=== PATIENT | female | born 1995 | race Caucasian/White ===

== ENCOUNTER 2019-07-11 12:46 | Emergency (ER) | payer OTHER ==
[~2019-07-11] VITALS: Ht 167.6 cm; Wt 85.6 kg
[2019-07-11] MEDS ORDERED: KETOROLAC 30 MG/ML VIAL (J1885) IV ONE (15:15)
--- NOTE | 2019-07-11 15:47 | REP ---
Chest x-ray: Two views. History: Chest pain . Comparison study: No comparison study. . Findings: The lungs are well inflated and free of infiltrate. The pleural angles are sharp. The heart size is normal. Pulmonary vasculature is not increased. No significant bony abnormality is seen. Impression: Negative chest x-ray. Electronically Signed by Juma Naylor MD 07/11/2019 03:38 P
[2019-07-11] MEDS ORDERED: ISOVUE-370 76% 100ML VIAL (Q9967) As Ordered ONE (15:50)
--- NOTE | 2019-07-11 16:16 | REP ---
CT pulmonary angiogram: With IV contrast. History: Chest pain. Comparison studies: Today's chest x-ray. Contrast dose: 75 ML of Isovue [address] technique: Helical scanning is acquired and overlapping 1.5 mm and contiguous 3 mm axial images are reformatted. In addition, maximum intensity projection and multiplanar re-formation images are generated in sagittal and coronal imaging projections. CT pulmonary angiographic findings: There is good opacification of the pulmonary arterial tree. There is no CT evidence of pulmonary embolism. Thoracic aorta enhances homogeneously and is normal in course and caliber. There is no evidence of pleural or pericardial effusion. No hilar or mediastinal mass or adenopathy is seen. The lung koo are clear. Impression: Negative CT pulmonary angiogram. There is no CT evidence of pulmonary embolus. Electronically Signed by Juma Naylor MD 07/11/2019 04:07 P
[2019-07-11] MEDS ORDERED: KETO10TAB PO (17:08)
[2019-07-11 17:35] VITALS: BP 123/74
--- NOTE | 2019-07-13 07:15 | ECGEPIP ---
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
== END 2019-07-11 17:45 | disposition home or self-care (01) ==
LOC: M ED 12:46
DX: R07.89 Other chest pain (principal); Z88.8 Allergy status to other drugs, medicaments and biological substances
CPT/HCPCS: 71046; 71275; 80047; 84702; 85379; 93005; 96374; 99284; J1885; Q9967